=== PATIENT | female | born 1985 | race Caucasian/White ===

== ENCOUNTER → 2018-05-18 10:45 | Outpatient (CLI) | payer OTHER, SELFPAY ==
[2018-05-18 15:05] LABS: Basophils % 0.6 % (0.1-2.0); Eosinophils # 0.3 K/mm3 (0.0-0.4); Eosinophils % 3.7 % (0.1-12.0); Hematocrit 43.3 % (37.0-47.0); Hemoglobin 13.9 g/dL (12.2-16.2); Lymphocytes # 1.7 K/mm3 (0.7-4.5); Lymphocytes % 21.9 % (10-50); Mean Corpuscular Hemoglobin 25.9 pg (27.0-31.2); Mean Corpuscular Volume 80.9 fl (81-99); Mean Platelet Volume 8.3 fl (7.4-10.4); Monocytes # 0.6 K/mm3 (0.1-1.0); Monocytes % 7.5 % (1.7-9.3); Neutrophils # 5.2 K/mm3 (1.8-7.8); Neutrophils % 66.3 % (37.0-80.0); Platelet Count 249 K/mm3 (142-424); Red Blood Count 5.35 M/mm3 (4.20-5.40); Red Cell Distribution Width 15.9 % (11.5-17.5); White Blood Count 7.8 K/mm3 (4.8-10.8)
[2018-05-18 15:58] LABS: Alanine Aminotransferase 27 U/L (12-78); Albumin Level 3.2 gm/dL (3.4-5.0); Albumin/Globulin Ratio 1.1 (1.1-1.8); Alkaline Phosphatase 104 U/L (46-116); Aspartate Amino Transferase 13 U/L (15-37); Bilirubin,Total 0.4 mg/dL (0.2-1.0); Blood Urea Nitrogen 8 mg/dL (7-18); Calcium 8.5 mg/dL (8.5-10.1); Carbon Dioxide 29 mmol/L (21.0-32.0); Chloride 105 mmol/L (98-107); Chol/HDL Ratio 3.5 (1-3.5); Cholesterol 124 mg/dL (140-200); Creatinine,Serum 0.81 mg/dL (0.55-1.02); Estimated Glomerular Filt Rate 83 ml/min (>60); GFR (African American) 100 ML/MIN (>60); Glucose 113 mg/dL (74-106); HDL Cholesterol 35 mg/dL (29-89); LDL Cholesterol 61 mg/dL (0-130); Sodium 142 mmol/L (136-145); Thyroid Stimulating Hormone 0.77 uIU/ml (0.358-3.740); Total Protein,Serum 6.2 gm/dL (6.4-8.2); Triglycerides 138 mg/dL (30-200); VLDL Cholesterol 28 mg/dL (0-40)
[2018-05-18 15:59] LABS: Hemoglobin A1C 5.6 % (0.0-7.0)
[2018-05-19 14:18] LABS: Thyroid Peroxidase Antibodies 13 IU/mL (0-34)
[2018-05-26 08:53] LABS: Insulin Level Total 30.6 uIU/mL (2.6-24.9); Thyroglobulin Level <1.0 IU/mL (0.0-0.9)
== END ==
PROVIDERS: PCP Nurse Practitioner Family; Visit Provider Nurse Practitioner Family
DX: R63.5 Abnormal weight gain (principal); R53.83 Other fatigue
CPT/HCPCS: 36415; 80053; 80061; 83036; 83525; 84443; 85025; 86376; 86800